=== PATIENT | female | born 1995 | race Hispanic/Latino ===

== ENCOUNTER 2016-08-09 22:19 | Emergency (ER) ==
[2016-08-09 22:42] LABS: URINE SOURCE CLEAN CATCH
[2016-08-09] MEDS ORDERED: NS 1,000 ML IV ONE (22:46)
[2016-08-09] MEDS ORDERED: ZOFRAN IV ONE (22:46)
[2016-08-09 22:52] LABS: MANUAL DIFF NEEDED? NO
[2016-08-09 22:53] LABS: BILIRUBIN URINE NEGATIVE (NEGATIVE); BLOOD URINE 4+ (NEGATIVE); CLARITY CLEAR (CLEAR); COLOR YELLOW; GLUCOSE URINE NEGATIVE (NEGATIVE); LEUKOCYTES URINE TRACE (NEGATIVE); NITRITE URINE NEGATIVE (NEGATIVE); PROTEIN URINE TRACE mg/dL (NEGATIVE); URINE CULTURE PL NEEDED? YES; URINE EPITHELIAL CELLS >10 /HPF (<10); URINE RBC 20-40 /HPF (<10); URINE WBC <10 /HPF (<10); UROBILINOGEN URINE NORMAL
[2016-08-09 22:57] LABS: BASO% 0.4 % (0.0-0.8); EOS# 0.23 X1000 (0.0-0.7); EOS% 1.9 % (0.0-10.0); HEMATOCRIT 37.5 % (37.0-47.0); IMM GRAN# 0.03 X1000 (0.0-0.04); IMM GRAN% 0.2 % (0.0-0.5); LYMPH# 3.59 X1000 (1.2-3.4); LYMPH% 29.4 % (20.5-51.1); MCHC 34.7 g/dL (33-37); MCV 89.3 FL (81-99); MONO% 7.4 % (1.7-9.3); MPV 10.8 FL (7.4-10.4); NEUT% 60.7 % (42.2-75.2); PLT 327 X1000 (130-400)
--- NOTE | 2016-08-09 23:04 | PROVIDER DOCUMENTATION ---
HPI-General Adult - General Chief Complaint: Abdominal Pain Stated Complaint: ABD PAIN Time Seen by Provider: 08/09/16 22:30 Source: patient Allergies/Adverse Reactions: Patient Allergies Allergy/AdvReac Type Severity Reaction Status Date / Time No Known Allergies Allergy Verified 08/09/16 22:28 Home Medications: Home Medication List Medication Instructions Recorded Confirmed Last Taken Type Etonogestrel [Nexplanon] 68 mg SQ DAILY 05/12/16 05/28/16 1 Day Ago History Docusate Sodium [Colace] 100 mg PO DAILY #10 capsule 08/10/16 Unknown Rx Magnesium Citrate [Citrate of 300 ml PO ONCE #1 bottle 08/10/16 Unknown Rx Magnesia] Na Phos,M-B/Na Phos,Di-Ba [Fleet 133 ml MO HS PRN PRN #3 enema 08/10/16 Unknown Rx Enema] - History of Present Illness -Gen Adult Nature of Presenting Problems: Pt. is 21 yof that presents with c/o LUQ and epigastric pain that began several hours prior to coming in and right after she ate supper. Pt. reports this happened one other time when she was but they never found out what was causing the pain. Pt. reports she is nauseated, but denies any vomiting, fever or diarrhea. Pt. denies any other symptoms at time of exam. Location of Pain/Injury: reports: abdomen. denies: head, face, mouth, neck, chest, upper extremity, hand(s), back, pelvis, genitalia, lower extremity, feet , upper body, lower body, generalized Pain Radiation: reports: epigastric Quality of Pain: reports: aching. denies: burning, cramping, dull, fullness, indigestion, pressure, sharp, stabbing, tearing, throbbing, tightness Severity: reports: moderate. denies: mild, severe Onset/Duration: reports: abrupt, 1-3 hours ago Timing: reports: still present. denies: improving, gone now, resolved prior to arrival, intermittent, constant, changing over time, getting worse Context/Activities at Onset: reports: eating. denies: recent emotional stress, recent physical stress, recent trauma history, possible bad food, cold exposure , out of country travel Modifying Factors: improves with: nothing. worse with: eating Associated Symptoms: reports: nausea. denies: anxiety, arm pain, back/neck pain , chest pain, constipation, cough, diaphoresis, diarrhea, dizziness, EENT symptoms, fatigue, fever/chills, genitourinary problems, headaches, heartburn, joint pain, loss of appetite, malaise, muscle aches, sinus congestion/drainage, rash, seizure, shortness of breath, sensory/motor loss, pain with inspiration, swelling/mass in abdomen, syncope, vomiting, weakness, trouble walking Similar Symptoms Previously?: No Recently seen or treated by another doctor?: No Review of Systems - Adult - REVIEW OF SYSTEMS - ADULT Constitutional: reports: see HPI. denies: chills, fever, fatique Eyes: reports: see HPI. denies: discharge, blurred vision, double vision Ears, Nose, Mouth & Throat: reports: see HPI. denies: ear discharge, ear pain, sinus problem, nose pain, loose teeth, mouth/dental pain, throat pain, throat swelling Cardiovascular: reports: see HPI. denies: chest pain, irregular heart rate, orthopnea, palpitations, syncope Respiratory: reports: see HPI. denies: chronic cough, cough, dyspnea on exertion, pleurisy, shortness of breath, wheezing Gastrointestinal: reports: see HPI, abdominal pain, nausea. denies: hematemesis , diarrhea, frequent heartburn, vomiting Genitourinary: reports: see HPI. denies: dysuria, discharge, frequency, hematuria, incontinence, urgency Musculoskeletal: reports: see HPI. denies: bone pain, back pain, joint pain, muscle aches, neck pain Integumentary: reports: see HPI. denies: hives, itching, rash, skin thickening Neurological: reports: see HPI. denies: ataxia, headache/migraines, numbness, paresthesia, seizure, tremors Psychiatric: reports: see HPI. denies: anxiety, depression, emotional problems , insomnia, panic attacks, suicidal thoughts Past History - Adult - PAST MEDICAL HISTORY-ADULT Review of Records: reports: Old Records Reviewed, Nursing Assessment Review, Medications Reviewed, Social history reviewed & non-contributory. Major Childhood Illnesses: reports: denies history Cardiovascular: reports: denies history Genitourinary: reports: other (CERVICAL CYSTS) Musculoskeletal: reports: denies history Neurological: reports: denies history Endocrine/Immune: reports: denies history Other Conditions: reports: denies history - PRIOR SURGERIES/PROCEDURES Surgical/Procedure History: reports: reviewed, not pertinent - PRIOR HOSPITALIZATIONS Prior Hospitalizations: reports: none - IMMUNIZATION STATUS Childhood Immunizations: See Nurse Assessment Flu Vaccine: See Nurse Assessment - FAMILY HISTORY Family History: reviewed, not pertinent - SOCIAL HISTORY Smoking: non-smoker Physical Exam-General - PHYSICAL EXAM-ADULT Initial Vital Signs Reviewed: Yes - CONSTITUTIONAL General Appearance: alert, mild distress, obese. negative: thin, anxious, lethargic, slow to respond, obtunded, combative - EYES Eyes: PERRL/EOMI, pink conjunctivae. negative: conjuctival exudate, scleral icterus, subconjunctival hemorrhage - HEAD, EARS, NOSE, MOUTH & THROAT HENMT: normocephalic/atraumatic, moist mucous membranes. negative: angioedema, frontal tenderness, maxillary tenderness - NECK Neck: non-tender, full range of motion, supple, normal inspection. negative: lymphadenopathy, trachial deviation, thyromegaly - RESPIRATORY Respiratory: lungs clear, normal breath sounds. negative: crackles, rales, rhonchi, stridor, wheezing - CARDIOVASCULAR Cardiovascular: normal peripheral pulses, regular rate, rhythm, no edema, no JVD , no murmur. negative: extra beats, friction rub, irregularly irregular - CHEST (BREASTS) Chest/Breast: deferred - GASTROINTESTINAL (ABDOMEN) Abdominal Exam: normal bowel sounds, soft, tenderness (LUQ and epigastrum), Roberts's sign. negative: distended, guarding, rigid, rebound, hernia, mass, hepatomegaly, spleenomegaly - GENITOURINARY Female Genitalia/Pelvic Exam: deferred Rectal Exam: deferred Hemoccult Exam: deferred - LYMPHATIC Lymphatic: no adenopathy. negative: axilla node tender, cervical node tenderness - MUSCULOSKELETAL Back Exam: normal inspection, no CVA tenderness, no vertebral tenderness. negative: ecchymosis, swelling, vertebral tenderness Extremity: normal range of motion, non-tender, normal gait, normal inspection. negative: deformity, erythema, inflammation, swelling, tenderness Peripheral Pulses: radial (R): 2+, radial (L): 2+ - SKIN Integumentary: normal color, normal turgor, warm/dry. negative: cyanosis, diaphoresis, ecchymosis, erythema, jaundice, mottled, pallor, petechiae, purpura , rash, swelling, tenderness - NEUROLOGIC Neurologic: grossly normal, no motor/sensory deficits. negative: aphasia, facial droop, focal weakness, motor weakness, sensory deficit - PSYCHIATRIC Psych/Mental Status: normal mood/affect, normal thought content, normal thought process, oriented x 3. negative: anxious, paranoid, tearful Progress - PLAN OF CARE/RESULTS Progress/Plan/Lab Results: Discussed results and plan of care with patient. Patient agrees with plan and verbalizes understanding. Vital Signs Temp Pulse Resp BP Pulse Ox 08/09/16 22:24 97.6 F 76 20 124/78 100 No Known Allergies Allergy (Verified 08/09/16 22:28) Etonogestrel [Nexplanon] 68 mg SQ DAILY 05/12/16 Dietary Diet NPO Start Sun Aug 09 2229 Laboratory 08/09/16 08/09/16 08/09/16 Unknown 22:40 22:40 WBC 12.21 H RBC 4.20 Hgb 13.0 Hct 37.5 MCV 89.3 MCH 31.0 MCHC 34.7 RDW Std Deviation 12.0 Plt Count 327 MPV 10.8 H Immature Gran % (Auto) 0.2 Neut % (Auto) 60.7 Lymph % (Auto) 29.4 [place] % (Auto) 7.4 Eos % (Auto) 1.9 Baso % (Auto) 0.4 Immature Gran # (Auto) 0.03 Neut # (Auto) 7.41 H Lymph # (Auto) 3.59 H [place] # (Auto) 0.90 H Eos # (Auto) 0.23 Baso # (Auto) 0.05 Sodium 134 L Potassium 4.1 Chloride 103 Carbon Dioxide 21 L Anion Gap 11 BUN 21 Creatinine 0.6 Estimated GFR/1.73 m2 > 60 BUN/Creatinine Ratio 35 Glucose 120 H Calculated Osmolality 272 Calcium 9.3 Total Bilirubin 0.20 AST 18 ALT 18 Alkaline Phosphatase 113 H Total Protein 7.6 Albumin 4.2 Globulin 3.0 Albumin/Globulin Ratio 1.0 Amylase 41 Lipase 23 Urine Source CLEAN CATCH Urine Color YELLOW Urine Clarity CLEAR Urine pH 6.0 Ur Specific [place] 1.020 Urine Protein TRACE A Urine Ketones NEGATIVE Urine Blood 4+ Urine Nitrite NEGATIVE Urine Bilirubin NEGATIVE Urine Urobilinogen NORMAL Urine Microscopic RBC 20-40 A Urine WBC TRACE A Urine Microscopic WBC <10 Ur Epithelial Cells >10 A Urine Bacteria 3+ Urine Glucose NEGATIVE Orders Category Date Time Status ED: Urine Bedside ORDERED Care 08/09/16 22:30 Active Saline Loc NOW Care 08/09/16 22:31 Active NPO Diet 08/09/16 22:30 Active FLAT/UPRIGHT ABD/1 VIEW CHEST [RAD] Stat Exams 08/09/16 23:13 Taken AMYLASE [CHEM] Stat Lab 08/09/16 22:40 Completed CBC WITH ELECTRONIC DIFF [HEME] Stat Lab 08/09/16 22:40 Completed COMPREHENSIVE METABOLIC PANEL [CHEM] Stat Lab 08/09/16 22:40 Completed LIPASE [CHEM] Stat Lab 08/09/16 22:40 Completed UA [URINALYSIS PL W/POSS RFLX CULT] [URINALYSIS] Stat Lab 08/09/16 Completed URINE CULTURE [RM] Routine Lab 08/09/16 22:54 Ordered 0.9% Sodium Chloride Inj [Ns] 1,000 ml Med 08/09/16 22:46 Active IV 125 mls/hr Lido/Sunshine Alk/Al&mg Hydrox [G.i. Cocktail] Med 08/09/16 23:07 Discontinued 30 ml PO NOW ONE Ondansetron [Zofran] Med 08/09/16 22:46 Discontinued 4 mg IV NOW ONE Pantoprazole [Protonix] Med 08/09/16 23:07 Discontinued 40 mg IV NOW ONE Sodium Chloride 0.9% Med 08/09/16 23:07 Discontinued 10 ml INJ NOW ONE Laboratory Tests 08/09/16 08/09/16 08/09/16 22:40 22:40 Unknown WBC 12.21 H RBC 4.20 Hgb 13.0 Hct 37.5 MCV 89.3 MCH 31.0 MCHC 34.7 RDW Std Deviation 12.0 Plt Count 327 MPV 10.8 H Immature Gran % (Auto) 0.2 Neut % (Auto) 60.7 Lymph % (Auto) 29.4 [place] % (Auto) 7.4 Eos % (Auto) 1.9 Baso % (Auto) 0.4 Immature Gran # (Auto) 0.03 Neut # (Auto) 7.41 H Lymph # (Auto) 3.59 H [place] # (Auto) 0.90 H Eos # (Auto) 0.23 Baso # (Auto) 0.05 Sodium 134 L Potassium 4.1 Chloride 103 Carbon Dioxide 21 L Anion Gap 11 BUN 21 Creatinine 0.6 Estimated GFR/1.73 m2 > 60 BUN/Creatinine Ratio 35 Glucose 120 H Calculated Osmolality 272 Calcium 9.3 Total Bilirubin 0.20 AST 18 ALT 18 Alkaline Phosphatase 113 H Total Protein 7.6 Albumin 4.2 Globulin 3.0 Albumin/Globulin Ratio 1.0 Amylase 41 Lipase 23 Urine Source CLEAN CATCH Urine Color YELLOW Urine Clarity CLEAR Urine pH 6.0 Ur Specific [place] 1.020 Urine Protein TRACE A Urine Ketones NEGATIVE Urine Blood 4+ Urine Nitrite NEGATIVE Urine Bilirubin NEGATIVE Urine Urobilinogen NORMAL Urine Microscopic RBC 20-40 A Urine WBC TRACE A Urine Microscopic WBC <10 Ur Epithelial Cells >10 A Urine Bacteria 3+ Urine Glucose NEGATIVE - XRAY 1 XRAY Study: Chest, Abdomen XRAY Interpretation: Constipation ([place]) Departure - Departure Time of Disposition Order: 00:23 DIAGNOSIS: Abdominal pain Qualifiers: Abdominal location: left upper quadrant Qualified Code(s): R10.12 - Left upper quadrant pain Constipation Qualifiers: Constipation type: unspecified constipation type Qualified Code(s): K59.00 - Constipation, unspecified Disposition: HOME 01 Certified Medical Emergency: Emergent Condition: Stable Additional Instructions: Follow up with primary care physician Take medications as directed Return to ED for any concerns or worsening of symptoms ED Follow Up Instructions: You have been treated by a care provider in the Emergency Department. These instructions are being provided to you so you can have an understanding of how to care for yourself upon discharge. Upon discharge from the Emergency Department, you are responsible for making arrangements for follow-up care by a physician of your choice. Take all prescribed medications as directed. Return to the Emergency Department immediately for any new or worsening symptoms. You may call the Physician Referral phone number at [phone] to obtain a list of Physicians who are taking new patients. Prescriptions: Magnesium Citrate [Citrate of Magnesia] 300 ml PO ONCE #1 bottle Docusate Sodium [Colace] 100 mg PO DAILY #10 capsule Na Phos,M-B/Na Phos,Di-Ba [Fleet Enema] 133 ml MO HS PRN PRN #3 enema PRN Reason: Constipation Attestation - Physician/ DIMA Attestation Patient care was provided by Advanced Practice Provider:: Yes Advanced Practice Provider:: Ranjit Ramires Advanced Practice Provider documentation review:: The Mid-level provider documentation, treatment plan and medical decision making was reviewed by the physician who agrees with all treatment and medical decision making by the MLP.
[2016-08-09] MEDS ORDERED: PROTONIX IV ONE (23:07)
[2016-08-09] MEDS ORDERED: SODIUM CHLORIDE 0.9% INJ ONE (23:07)
[2016-08-09] MEDS ORDERED: G.I. COCKTAIL PO ONE (23:07)
[2016-08-09 23:12] LABS: AGAP 11; ALBUMIN 4.2 g/dL (3.5-5.0); ALKALINE PHOSPHATASE 113 U/L (32-104); AMYLASE 41 U/L (20-200); BUN 21 mg/dL (8-22); CALCIUM 9.3 mg/dL (8.8-10.2); CHLORIDE 103 mmol/L (98-107); COSMO 272; GOT 18 U/L (10-30); GPT 18 U/L (10-36); LIPASE 23 U/L (13-60); POTASSIUM 4.1 mmol/L (3.5-5.1); SODIUM 134 mmol/L (136-145); TCO2 21 mmol/L (25-35); TOTAL PROTEIN 7.6 g/dL (6.3-8.3)
[2016-08-10 00:43] VITALS: BP 106/69
--- NOTE | 2016-08-10 08:19 | Diag Imaging Result Document ---
PROCEDURE NAME: FLAT/UPRIGHT ABD/1 VIEW CHEST - 08/09/2016 FLAT AND UPRIGHT AND CHEST, THREE VIEWS: FINDINGS: The chest is compared to 06/22/2013. The lungs are well expanded. No cardiomegaly. No pneumonia. No free air beneath the diaphragm. There is stool throughout the colon. The bowel loops are not dilated. No organomegaly. No abnormal abdominal calcifications overlying the kidneys. There is a calcification lateral to the left transverse process of the L4 vertebra. This could be a stone or fecalith or even a phlebolith. IMPRESSION: 1. Constipation. 2. Left abdominal calcification. If there is clinical concern that this represents a ureteral stone then further imaging is recommended. [facility]
== END 2016-08-10 00:57 | disposition home or self-care (01) ==
LOC: P.ED 22:19
DX: K59.00 Constipation, unspecified (principal); R10.12 Left upper quadrant pain; R10.13 Epigastric pain; R11.0 Nausea; R10.812 Left upper quadrant abdominal tenderness; R10.816 Epigastric abdominal tenderness; E66.9 Obesity, unspecified
CPT/HCPCS: 74022; 80053; 81001; 81025; 82150; 83690; 85025; 87088; 96361; 96374; 96375; C9113; J2405; J7030; S0164